=== PATIENT | female | born 1990 | race Caucasian/White ===

== ENCOUNTER 2020-09-19 00:18 | Emergency (ER) | payer OTHER, MEDICAID ==
[~2020-09-19] VITALS: Ht 160 cm; Wt 74.8 kg
[2020-09-19 00:26] VITALS: BP 131/71
[2020-09-19 01:02] LABS: URINE BILIRUBIN NEGATIVE (Negative); URINE BLOOD TRACE (Negative); URINE CLARITY CLEAR; URINE COLOR YELLOW; URINE GLUCOSE-RANDOM NEGATIVE (Negative); URINE KETONES NEGATIVE (Negative); URINE LEUKOCYTES-REFLEX TRACE (Negative); URINE NITRITE-REFLEX POSITIVE (Negative); URINE PROTEIN NEGATIVE (Negative); URINE SPECIFIC GRAVITY >= 1.030 (1.005-1.030); URINE UROBILINOGEN 0.2 E.U./dl (0.2-1.0)
[2020-09-19 01:21] LABS: BACTERIA-REFLEX >30 Many /HPF (None Seen); CASTS None Seen /LPF (None Seen); MUCUS 4-6 Moderate strn/LPF (None Seen); SQUAMOUS 0-3 Few /LPF (0-3); TRANSITIONAL EPITHEL CELL 0-3 Few /LPF (None Seen); URINE RBC 3-10 Few /HPF (0-2); WBC CLUMPS Few (None Seen)
[2020-09-19] MEDS ORDERED: CIPROFLOXACIN500 M1 PO (01:21)
[2020-09-19] MEDS ORDERED: TORADOL 10 MG T10 MG PO (01:21)
[2020-09-19] MEDS ORDERED: HYDROCODON-ACE1 EAC7 PO (01:21)
[2020-09-19 01:22] LABS: CRYSTALS None Seen /LPF (None Seen)
== END 2020-09-19 01:30 | disposition home or self-care (01) ==
LOC: M.ERS 00:18
PROVIDERS: Personal Emergency Response Attendant
DX: N39.0 Urinary tract infection, site not specified (principal); M79.601 Pain in right arm; M54.5 Low back pain; M79.602 Pain in left arm; R20.2 Paresthesia of skin

== ENCOUNTER 2021-01-12 01:49 | Emergency (ER) | payer OTHER, MEDICAID ==
[~2021-01-12] VITALS: Ht 165.1 cm; Wt 77.1 kg
[~2021-01-12 01:49] MED LIST: CIPROFLOXACIN500 M1 PO; HYDROCODON-ACE1 EAC7 PO; TORADOL 10 MG T10 MG PO
[2021-01-12] MEDS ORDERED: HYDROCODON-ACE1 EAC8 PO (02:40)
[2021-01-12 02:53] VITALS: BP 126/87
== END 2021-01-12 02:53 | disposition home or self-care (01) ==
LOC: M.ERS 01:49
DX: S60.221A Contusion of right hand, initial encounter (principal); W22.8XXA Striking against or struck by other objects, initial encounter; Y93.89 Activity, other specified; Y92.89 Other specified places as the place of occurrence of the external cause; Y99.0 Civilian activity done for income or pay

== ENCOUNTER 2021-07-20 06:02 | Emergency (ER) | payer OTHER, MEDICAID ==
[~2021-07-20] VITALS: Ht 167.6 cm; Wt 77.1 kg
[~2021-07-20 06:02] MED LIST changes: +HYDROCODON-ACE1 EAC8 PO
[2021-07-20] MEDS ORDERED: DOXYCYCLINE 10100 MG PO (06:42)
[2021-07-20] MEDS ORDERED: ACETAMINOPHEN-1 EAC2 PO (06:42)
[2021-07-20 06:49] VITALS: BP 100/65
== END 2021-07-20 06:49 | disposition home or self-care (01) ==
LOC: M.ERS 06:02
DX: S80.862A Insect bite (nonvenomous), left lower leg, initial encounter (principal); L03.116 Cellulitis of left lower limb; L60.0 Ingrowing nail; W57.XXXA Bitten or stung by nonvenomous insect and other nonvenomous arthropods, initial encounter; Y93.89 Activity, other specified; Y92.89 Other specified places as the place of occurrence of the external cause; Y99.8 Other external cause status

== ENCOUNTER 2021-08-01 02:53 | Emergency (ER) | payer OTHER, MEDICAID ==
[~2021-08-01] VITALS: Ht 167.6 cm; Wt 77.1 kg
[~2021-08-01 02:53] MED LIST changes: +ACETAMINOPHEN-1 EAC2 PO; +DOXYCYCLINE 10100 MG PO
[2021-08-01] MEDS ORDERED: HIBICLENS118 ML TOP (03:17)
[2021-08-01] MEDS ORDERED: MUPIROCIN15 GM TOP (03:17)
[2021-08-01] MEDS ORDERED: DOXYCYCLINE 10100 MG PO (03:17)
[2021-08-01] MEDS ORDERED: TERBINAFINE HC250 MG PO (03:17)
[2021-08-01 03:27] VITALS: BP 111/58
== END 2021-08-01 03:27 | disposition home or self-care (01) ==
LOC: M.ERS 02:53
DX: L03.032 Cellulitis of left toe (principal); L03.116 Cellulitis of left lower limb